=== PATIENT | male | born 1965 | race Caucasian/White ===

== ENCOUNTER 2016-07-30 09:07 | Day surgery (SDC) | payer BC ==
[~2016-07-30] VITALS: Ht 172.7 cm; Wt 97.9 kg
[~2016-07-30 09:07] MED LIST: LEVOFLOXACIN 500 mg IVPB 500 MG in D5W 100 ML IV ONE; LR 1,000 ML IV SCH
--- OUTSIDE RECORDS SUMMARY | 2016-07-30 09:13 | XMS REPORT | Summary of Care ---
Author Author Hugo Tan, FACS, ,Rodrigo Organization Unknown Address [address], [place] [id number] Phone Unavailable Care Team Providers Care Make Up Man Name Role Phone Cierra Adhikari M.D. 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 Encounter for postvasectomy sperm count (V25.8, Z30.8) Status: Active Obstructive sleep apnea (327.23, G47.33) Status: Active Worms in stool (128.9, B83.9) Status: Active Rectal bleeding (569.3, K62.5) Status: Active Rectal itching (698.0, L29.0) Status: Active External hemorrhoids (455.3, K64.4) Status: Active Inguinal hernia, left (550.90, K40.90) Status: Active Umbilical hernia (553.1, K42.9) Status: Active Cutaneous skin tags (701.9, L91.8) Status: Active Medications Name Dates Details Hydrocortisone Jaya-Pramoxine 2.5-1 & 1 % Rectal Kit USE AT BEDTIME NEEDED Quantity: 1 Maria Dolores Adhikari M.D.* Started Active Allergies and Adverse Reactions Name Dates Details No Known Drug Allergies Status: Active Past Medical History Name Dates Details Worms in stool (128.9, B83.9) Status: Active Procedures Procedure Dates Details History of Knee Surgery History of Surgery Vas Deferens Vasectomy ECG/ EKG Preop Pendin22-May-2015 CBC w/ Auto Diff 7150 Ordered:22-May-2015 BASIC METABOLIC PROFILE 1210 Ordered:22-May-2015 XRay CHEST-PA & LAT Ordered:22-May-2015 Immunization Name Dates Details Immunizations not documented Family History Unknown Family Member* Name Dates Details Family history of Diabetes Mellitus (V18.0) Comments: Family History Status: Active Social History Smoking Status* Unknown if ever smoked Vital Signs Date Test Result Details No Known Vitals to report Results Date Description Value Details Results not documented Plan of Care Planned Observations* Name Dates Details Planned Goals not documented Goal Planned Encounters* Appointment; Provider: Brandon Martinez On 06-Jul-2007 10:00 Instructions * Instructions not documented Encounters Appointment; Rodrigo Arias Encounter Diagnosis: Problem not documented On 22-May-2015 10:15 Appointment; Rodrigo Arias Encounter Diagnosis: Problem not documented On 09:30 Appointment; Fabian Gomez Encounter Diagnosis: Problem not documented On 10:45 Appointment; Savi Rand Encounter Diagnosis: Problem not documented On 14:00 Appointment; Maria Dolores Adhikari Encounter Diagnosis: Problem not documented On 11:00 Appointment; Jason Nelson Encounter Diagnosis: Problem not documented On 12:30 Appointment; Fabian Gomez Encounter Diagnosis: Problem not documented On 20-Aug-2013 13:45
--- OUTSIDE RECORDS SUMMARY | 2016-07-30 09:13 | XMS REPORT | Summary of Care ---
Author Author Hugo Tan, FACS, ,Rodrigo Organization Unknown Address [address], [place] [id number] Phone Unavailable Care Team Providers Care Explosive Operator Grenade Name Role Phone Cierra Adhikari M.D. Unavailable [...] Cutaneous skin tags (701.9, L91.8) Status: Active Incarcerated umbilical hernia (552.1, K42.0) Status: Active Medications Name Dates Details Hydrocortisone [...] not documented Goal Planned Encounters* Appointment; Provider: Rodrigo Arias On 23-Jun-2015 10:00 * Appointment; Provider: Brandon Martinez On 06-Jul-2007 10:00 [...]
--- OUTSIDE RECORDS SUMMARY | 2016-07-30 09:13 | XMS REPORT | Summary of Care ---
Author Author Hugo Tan FACS, ,Rodrigo Organization Unknown Address [address] [place], [place] [address] Phone Unavailable Care Team Providers Care Social Insurance Adviser Name Role Phone Hugo Tan, KIKE, ,, W Unavailable Unavailable Onofre Tan, Cierra Unavailable Unavailable Fabian Gomez PP Unavailable Unavailable [...] Incarcerated umbilical hernia (552.1, K42.0) Status: Active Postoperative examination (V67.00, Z09) Status: Active Medications Name Dates Details Hydrocortisone Jaya-Pramoxine 2.5-1 & 1 % Rectal Kit USE AT BEDTIME NEEDED Quantity: 1 Maria Dolores Adhikari M.D.* Started ActiveNorco 5-325 MG Oral Tablet 1 OR 2 EVERY 6 HOURS PRN PAIN * Quantity: 30 Refills: 0 Rodrigo Arias M.D., KIKE, , * Started 23-Jun-2015 Active Allergies and Adverse Reactions Name Dates Details No Known Drug Allergies Status: Active Past Medical History Name Dates Details Worms in stool (128.9, B83.9) Status: Active Procedures Procedure Dates Details History of Knee Surgery History of Surgery Vas Deferens Vasectomy Procedures not documented Immunization Name Dates Details Immunizations not documented Family History Unknown Family Member* Name Dates Details Family history of Diabetes Mellitus (V18.0) Comments: Family History Status: Active Social History Name Dates Details Smoking Status* Never smoker Vital Signs Date Test Result Details No Known Vitals to report Results Date Description Value Details 16-Jun-2015 12:46 CBC w/ Auto Diff 7150 Comments: DOS 06-23-15/HASC WBC 6.8 K/uL (Better) Range: 4.5-11.0 RBC 5.15 mil/uL (Better) Range: 4.20-5.40 HGB 16.2 g/dL (Better) Range: 14.0-18.0 HCT 47.5 % (Better) Range: 42.0-53.0 MCV 92.3 fL (Better) Range: 80.0-99.0 MCH 31.5 pg (Better) Range: 27.3-32.5 MCHC 34.1 % (Better) Range: 32.0-36.0 RDW 12.7 % (Better) Range: 11.6-14.8 PLATELETS 254 K/uL (Better) Range: 150-400 MPV 7.5 fL (Better) Range: 6.0-11.0 %NEUTRO 54.3 % (Better) Range: 37.0-80.0 %LYMPHS 31.0 % (Better) Range: 13.0-50.0 %MONO 7.7 % (Better) Range: 0.0-12.0 %EOS 1.2 % (Better) Range: 0.0-7.0 %BASO 1.2 % (Better) Range: 0.0-2.5 %SOHEILA 4.6 % (Better) Range: 0.0-5.0 NEUTRO 3.7 K/uL (Better) Range: 2.0-6.9 LYMPHS 2.1 K/uL (Better) Range: 0.6-3.4 MONOS 0.5 K/uL (Better) Range: 0.0-0.9 EOS 0.1 K/uL (Better) Range: 0.0-0.7 BASO 0.1 K/uL (Better) Range: 0.0-0.2 12:51 XRay CHEST-PA & LAT Comments: Exam Date: 06/16/2015 12: 42Dictation Date: 06/16/2015 12:51 X CHEST PA & LAT (Better) 13:02 BASIC METABOLIC PROFILE 1210 Comments: DOS 16/HASC SODIUM 137 mmol/L (Better) Range: 133-144 POTASSIUM 3.9 mmol/L (Better) Range: 3.5-5.1 CHLORIDE 101 mmol/L (Better) Range: 98-110 CARBON DIOXIDE 29.6 mmol/L (Better) Range: 23.0-33.0 ANION GAP 6 mmol/L (Better) Range: 6-16 BUN 18 mg/dL (Better) Range: 7-18 CREATININE, SERUM 1.08 mg/dL (Better) Range: 0.70-1.30 Comments: Please note new reference ranges effective 2014.----- EST GFR, >60 ml/min (Better) Range: >60 EST GFR, NON-AFR SOUTH AFR[place] >60 ml/min (Better) Range: >60 Comments: EST GFR is reported in ml/min per 1.73 m2 of body surface area. For -Chilean, please multiple result by 1.2.----- BUN:CREATININE RATIO 17 (Better) GLUCOSE 130 mg/dL (Above high threshold) Range: 70-100 CALCIUM 8.9 mg/dL (Better) Range: 8.5-10.1 13:16 ECG/ EKG Preop Electro CardioGram (Better) Plan of Care Planned Observations* Name Dates Details Planned Goals not documented Goal Planned Encounters* Appointment; Provider: Brandon Martinez On 06-Jul-2007 10:00 Instructions * Instructions not documented Encounters Appointment; Rodrigo Arias Encounter Diagnosis: Problem not documented On 03-Jul-2015 10:15 Appointment; Rodrigo Arias Encounter Diagnosis: Problem not documented On 23-Jun-2015 10:00 Appointment; Rodrigo Arias Encounter Diagnosis: Problem not documented On 22-May-2015 10:15 Appointment; Rodrigo Arais Encounter Diagnosis: Problem not documented On 09:30 [...]
--- OUTSIDE RECORDS SUMMARY | 2016-07-30 09:14 | XMS REPORT | Summary of Care ---
Author Author Hugo Tan, FACS, ,Rodrigo W Organization Unknown Address [address], [place] [phone] Phone Unavailable Care Team Providers Care Repairer General Name Role Phone Cierra Adhikari M.D. Unavailable [...] Active Encounter for postvasectomy sperm count (V25.8, Z30.9) Status: Active Obstructive sleep apnea (327.23, G47.33) Status: Active Worms in stool (128.9, B83.9) Status: Active Rectal bleeding (569.3, K62.5) Status: Active Rectal itching (698.0, L29.0) Status: Active External hemorrhoids (455.3, K64.8) Status: Active Inguinal hernia, left (550.90, K40.90) Status: Active Cutaneous skin tags (701.9, L91.8) Status: Active Umbilical hernia (553.1, K42.9) Status: Active Medications Name Dates Details Hydrocortisone Jaya-Pramoxine 2.5-1 & 1 % Rectal Kit USE AT BEDTIME NEEDED Quantity: 1 Onofre, Maria Dolores Tan* Started Active Allergies and Adverse Reactions Name [...] smoked Vital Signs Date Test Result Details 09:37 BP Systolic 120 mm[Hg] Status: BP Diastolic 88 mm[Hg] Status: Heart Rate 62 /min Status: Temperature 98.7 f Status: Weight 214 lb Status: Height 68.5 in Status: O2 SAT 90 % Status: Body Mass Index Calculated 32.07 kg/m2 Status: Body Surface Area Calculated 2.11 m2 Status: 11:20 BP Systolic 120 mm[Hg] Status: BP Diastolic 74 mm[Hg] Status: Respiration Rate 20 /min Status: Weight 211 lb Status: Body Mass Index Calculated 31.16 kg/m2 Status: Body Surface Area Calculated 2.11 m2 Status: Results Date Description Value Details Results not [...]
--- OUTSIDE RECORDS SUMMARY | 2016-07-30 09:14 | XMS REPORT | Summary of Care ---
Author Author Moody Perdomo M.D. Unknown Address Unknown Phone Unavailable Care Team Providers Care Lens Polisher Hand Name Role Phone Hugo Tan, KIKE, ,, W Unavailable Unavailable Onofre Tan, Cierra Unavailable Unavailable Ashtyn Perdomo M.D. Unavailable Unavailable Fabian Gomez Unavailable Unavailable Unavailable Unavailable Functional Status Name Dates Details Functional status health issues are not documented Status: Name Dates Details Cognitive status health issues [...] Active Postoperative examination (V67.00, Z09) Status: Active Viral syndrome (079.99, B34.9) Status: Active Medications Name Dates Details Hydrocortisone Jaya-Pramoxine 2.5-1 & 1 % KIT USE AT BEDTIME NEEDED Quantity: 1 Onofre Tan, August * Start Active Corwith 5-325 MG Oral Tablet 1 OR 2 EVERY 6 HOURS PRN PAIN * Quantity: 30 Refills: 0 Hugo Tan, KIKE, , , Rodrigo W * Start 23-Jun-2015 Active Oseltamivir Phosphate 75 MG Oral Capsule TAKE 1 CAPSULE Every twelve hours * Quantity: 1 Refills: 0 Leanne Tan, Moody Chamorro * Start 22-Jun-2016 Active 10 Capsule Bottle Allergies and Adverse Reactions Name Dates Details No Known Drug Allergies (Allergy) Status: Active Past Medical History Name Dates Details Worms in stool (128.9, B83.9) Status: Active Procedures Procedure Dates Details History of Knee Surgery History of Surgery Vas Deferens Vasectomy History of Incarcerated Umbilical Hernia Repair For Person Over Age 5 History of Inguinal Hernia Repair For Person Over Age 5 History of Excision Of Lesion Trunk Benign Up To .5cm Procedures not documented Immunization Name Dates Details Immunizations not documented Family History Name Dates Details Family history of Diabetes Mellitus (V18.0) Comments: Family History Status: Active Social History Name Dates Details - Status: Name Dates Details Never smoker Vital Signs Date Test Result Details 22-Jun-2016 09:47 BP Systolic 124 mm[Hg] Status: Comments: Location: ; Position: BP Diastolic 80 mm[Hg] Status: Comments: Location: ; Position: Temperature 99.3 f Status: Comments: Method: Weight 224.4 lb Status: Body Mass Index Calculated 33.62 kg/m2 Status: Body Surface Area Calculated 2.16 m2 Status: Results Date Description Value Details Results not documented Plan of Care Name Dates Details Planned Observations Planned Goals not documented Interventions Provided Medication Changes* Oseltamivir Phosphate 75 MG Oral Capsule - Start Instructions Name Dates Details Instructions not documented Encounters Appointment; Rodrigo Arias M.D.|Collin.C.[facility].|Britney,SHANT,KIKE, Encounter Diagnosis: Problem not documented On 03-Jul-2015 10:15 Appointment; Rodrigo Arias M.D.|MichelA.C.S.|Britney,SHANT,KIKE, Encounter Diagnosis: Problem not documented On 23-Jun-2015 10:00 Appointment; Rodrigo Arias M.D.|Osorio.Gladys.C.S.|Britney,SHANT,KIKE, Encounter Diagnosis: Problem not documented On 22-May-2015 10:15 Appointment; Rodrigo Arias M.D.|Osorio.A.C.S.|Britney,SHANT,KIKE, Encounter Diagnosis: Problem not documented On 09:30 Appointment; Fabian Gomez M.D. Encounter Diagnosis: Problem not documented On 10:45"
--- OUTSIDE RECORDS SUMMARY | 2016-07-30 09:14 | XMS REPORT | Summary of Care ---
Author Author Maria Dolores Adhikari M.D. Organization Unknown Address [address] [place], [place] [phone] Phone Unavailable Care Team Providers Care Cuff Setter Name Role Phone Fabian Gomez Unavailable Unavailable Unavailable Unavailable Functional Status Functional Status Health Issues* Name Dates Details No known functional status health issues Status: Cognitive Status Health Issues* Name Dates Details No known cognitive status health issues Status: Problems Name Dates Details Headache (784.0, [...] Active External hemorrhoids (455.3, K64.8) Status: Active Medications Name Dates Details No Reported Medications Active Allergies and Adverse Reactions Name Dates Details No Known Drug Allergies Status: Active Past Medical History Name Dates Details Worms in stool (128.9, B83.9) Status: Active Procedures Procedure Dates Details Knee Surgery Surgery Of Male Genitalia Vasectomy Procedures not documented Immunization Name Dates Details Immunizations not documented Family History Unknown Family Member* Name Dates Details Diabetes Mellitus (V18.0) Comments: Family History Status: Active Social History Smoking Status* Unknown if ever smoked Vital Signs Date Test Result Details 12:35 BP Systolic 135 mm[Hg] Status: BP Diastolic 89 mm[Hg] Status: Heart Rate 72 /min Status: Weight 210.4 lb Status: Height 69 in Status: Body Mass Index Calculated 31.07 kg/m2 Status: Body Surface Area Calculated 2.11 Status: Results Date Description Value Details Results not documented Plan of Care Instructions* Instructions not documented Planned Observations* Name Dates Details Planned Goals not documented Goal Planned Encounters* Appointment; Provider: Brandon Martinez On 06-Jul-2007 10:00 Instructions * No Known Instructions Encounters Appointment; Maria Dolores Adhikari Encounter Diagnosis: Problem not documented On 11:00 Appointment; Jason Nelson Encounter Diagnosis: Problem not documented On 12:30 Appointment; Fabian Gomez Encounter Diagnosis: Problem not documented On 20-Aug-2013 13:45 Appointment; Fabian Gomez Encounter Diagnosis: Problem not documented On 24-Jan-2012 15:15
--- OUTSIDE RECORDS SUMMARY | 2016-07-30 09:14 | XMS REPORT | Summary of Care ---
Author Author Fabian Gomez M.D. Organization Unknown Address [address], [place] [phone] Phone Unavailable Care Team Providers Care Grinder Mill Operator Name Role Phone Cierra Adhikari M.D. Unavailable [...] Active External hemorrhoids (455.3, K64.8) Status: Active Umbilical hernia (553.1, K42.9) Status: [...] smoked Vital Signs Date Test Result Details 11:20 BP Systolic 120 mm[Hg] Status: BP Diastolic 74 mm[Hg] Status: Respiration Rate 20 /min Status: Weight 211 lb Status: Body Mass Index Calculated 31.16 kg/m2 Status: Body Surface Area Calculated 2.11 m2 Status: Results Date Description Value Details Results not documented Plan of Care Planned Observations* Name Dates Details Planned Goals not documented Goal Planned Encounters* Appointment; Provider: Rodrigo Arias On 09:30 * Appointment; Provider: Brandon Martinez On 06-Jul-2007 10:00 Instructions * Instructions not documented Encounters Appointment; Fabian Gomez Encounter Diagnosis: Problem not documented On 10:45 Appointment; Savi Rand Encounter Diagnosis: Problem not documented On 14:00 Appointment; Maria Dolores Adhikari Encounter Diagnosis: Problem not documented On 11:00 Appointment; Jason Nelson Encounter Diagnosis: Problem not documented On 12:30 Appointment; Fabian Gomez Encounter Diagnosis: Problem not documented On 20-Aug-2013 13:45
--- OUTSIDE RECORDS SUMMARY | 2016-07-30 09:14 | XMS REPORT | Summary of Care ---
Author Author Fabian Gomez M.D. Organization Unknown Address [address], [place] [phone] Phone Unavailable Care Team Providers Care Seal Delivery Vehicle Officer Name Role Phone Ashtyn Gomez M.D. Unavailable Unavailable Jason Snider Unavailable Unavailable Fabian Gomez Unavailable Unavailable Unavailable Unavailable Functional Status Name Dates Details Functional status health issues are not documented Status: Name Dates Details Cognitive status health issues are not documented Status: Problems Name Dates Details Generalized abdominal pain (789.07, R10.84) Status: Active Medications Name Dates Details No Reported Medications Jason Snider Active Allergies and Adverse Reactions Name Dates Details No Known Drug Allergies (Allergy) Status: Active Procedures Procedure Dates Details History of Knee Surgery History of Surgery Vas Deferens Vasectomy History of Incarcerated Umbilical Hernia Repair For Person Over Age 5 History of Inguinal Hernia Repair For Person Over Age 5 History of Excision Of Lesion Trunk Benign Up To .5cm CT ABDOMEN WITHOUT AND WITH IV AND ORAL CONTRAST Ordered: 25-Jul-2016 Immunization Name Dates Details Immunizations not documented Family History Name Dates Details Family history of Diabetes Mellitus (V18.0) Comments: Family History Status: Active Social History Name Dates Details - Status: Name Dates Details Never smoker Vital Signs Date Test Result Details 25-Jul-2016 11:36 BP Systolic 144 mm[Hg] Status: Comments: Location: ; Position: BP Diastolic 96 mm[Hg] Status: Comments: Location: ; Position: Heart Rate 2 /min Status: Comments: Location: ; Weight 224 lb Status: Body Mass Index Calculated 33.56 kg/m2 Status: Body Surface Area Calculated 2.16 m2 Status: Results Date Description Value Details 25-Jul-2016 12:29 Urinalysis, Reflex to Microscopic or Culture PRN 8005 pH 5.5 Range: 5.0-7.5 SP GRAVITY 1.010 Range: 1.010-1.030 APPEARANCE CLEAR Range: Clear COLOR YELLOW Range: Straw-Yellow PROTEIN NEGATIVE mg/dL Range: Negative-Trace GLUCOSE 100 mg/dL (Abnormal) Range: Negative KETONE NEGATIVE mg/dL Range: Negative BILIRUB NEGATIVE Range: Negative BLOOD NEGATIVE Range: Negative UROBIL 0.2 EU/dL Range: 0.2-1.0 NITRITE NEGATIVE Range: Negative LEUK NEGATIVE Range: Negative 12:36 CBC w/ Auto Diff 7150 WBC 7.0 K/uL Range: 4.5-11.0 RBC 5.02 mil/uL Range: 4.20-5.40 HGB 15.7 g/dL Range: 14.0-18.0 HCT 44.6 % Range: 42.0-53.0 MCV 88.8 fL Range: 80.0-99.0 MCH 31.2 pg Range: 27.3-32.5 MCHC 35.1 % Range: 32.0-36.0 RDW 13.2 % Range: 11.6-14.8 PLATELETS 258 K/uL Range: 150-400 MPV 6.6 fL Range: 6.0-11.0 %NEUTRO 62.5 % Range: 37.0-80.0 %LYMPHS 26.2 % Range: 13.0-50.0 %MONO 5.5 % Range: 0.0-12.0 %EOS 1.1 % Range: 0.0-7.0 %BASO 1.0 % Range: 0.0-2.5 %SOHEILA 3.6 % Range: 0.0-5.0 NEUTRO 4.3 K/uL Range: 2.0-6.9 LYMPHS 1.8 K/uL Range: 0.6-3.4 MONOS 0.4 K/uL Range: 0.0-0.9 EOS 0.1 K/uL Range: 0.0-0.7 BASO 0.1 K/uL Range: 0.0-0.2 13:08 Comprehensive Metabolic Panel 1212 SODIUM 139 mmol/L Range: 133-144 POTASSIUM 3.9 mmol/L Range: 3.5-5.1 CHLORIDE 103 mmol/L Range: 98-110 CARBON DIOXIDE 29.4 mmol/L Range: 23.0-33.0 ANION GAP 7 mmol/L Range: 6-16 BUN 14 mg/dL Range: 7-18 CREATININE, SERUM 1.14 mg/dL Range: 0.70-1.30 BUN:CREATININE RATIO 12 EST GFR, >60 ml/min Range: >60 EST GFR, NON-AFR CITIZEN OF [place] >60 ml/min Range: >60 Comments: EST GFR is reported in ml/min per 1.73 m2 of body surface area. ----- GLUCOSE 142 mg/dL (Above high threshold) Range: 70-100 ALK PHOSPHATASE 60 U/L Range: 46-116 TOTAL BILIRUBIN 0.60 mg/dL Range: 0.20-1.00 AST 15 U/L Range: 8-35 ALT 38 U/L Range: 16-63 ALBUMIN 3.8 g/dL Range: 3.4-5.0 TOTAL PROTEIN 8.3 g/dL (Above high threshold) Range: 6.4-8.2 A/G RATIO 0.8 units (Below low threshold) Range: 1.0-1.8 CALCIUM 9.2 mg/dL Range: 8.5-10.1 13:08 AMYLASE 1250 AMYLASE 53 U/L Range: 25-115 13:08 Lipase 1275 LIPASE 681 U/L (Above high threshold) Range: 73-393 Plan of Care Name Dates Details Planned Observations Planned Goals not documented Planned Encounters Appointment; Provider: Schedule Radiology On 25-Jul-2016 14:00 Interventions Provided Labs/Procedures/Imaging* AMYLASE 1250; Done: Jul 25 2016 12:23PM * CBC w/ Auto Diff 7150; Done: Jul 25 2016 12:23PM * Comprehensive Metabolic Panel 1212; Done: Jul 25 2016 12:23PM * Lipase 1275; Done: Jul 25 2016 12:23PM * Urinalysis, Reflex to Microscopic or Culture PRN 8005; Done: Jul 25 2016 12: 23PM Instructions Name Dates Details Instructions not documented Encounters Appointment; Moody Perdomo M.D. Encounter Diagnosis: Problem not documented On 22-Jun-2016 09:40 Appointment; Rodrigo Arias M.D.|Collin.C.S.|Britney,SHANT,KIKE, Encounter Diagnosis: Problem not documented On 03-Jul-2015 10:15 Appointment; Rodrigo Arias M.D.|Collin.C.S.|SHANT Tan,KIKE, Encounter Diagnosis: Problem not documented On 23-Jun-2015 10:00 Appointment; Rodrigo Arias M.D.|Osorio.A.C.S.|SHANT Tan,KIKE, Encounter Diagnosis: Problem not documented On 22-May-2015 10:15 Appointment; Rodrigo Arias M.D.|Pepe,SHANT,KIKE, Encounter Diagnosis: Problem not documented On 09:30 Appointment; Fabian Gomez M.D. Encounter Diagnosis: Problem not documented On 10:45"
--- OUTSIDE RECORDS SUMMARY | 2016-07-30 09:14 | XMS REPORT | Summary of Care ---
Author Author Fabian Gomez M.D. Organization Unknown Address [address], [place] [phone] Phone Unavailable Care Team Providers Care Director Of Radiology Name Role Phone Ashtyn Gomez M.D. Unavailable Unavailable Jason Snider Unavailable Unavailable Fabian Gomez Unavailable Unavailable Unavailable Unavailable Functional Status Name Dates Details Functional status health issues are not documented Status: Name Dates Details Cognitive status health issues are not documented Status: Problems Name Dates Details Generalized abdominal pain (789.07, R10.84) Status: Active Left ureteral stone (592.1, N20.1) Status: Active Recurrent nephrolithiasis (592.0, N20.0) Status: Active Hyperglycemia (790.29, R73.9) Status: Active Medications Name Dates Details No [...] >60 ml/min Range: >60 EST GFR, NON-AFR EGYPTIAN >60 ml/min Range: >60 Comments: EST GFR [...] 681 U/L (Above high threshold) Range: 73-393 14:26 CT ABDOMEN WITHOUT AND WITH IV AND ORAL CONTRAST Comments: Exam Date: 07/25/2016 12:48Dictation Date: 07/25/2016 14:26 XC AB 45 MIN PREP Plan of Care Name Dates Details Planned [...] documented On 22-Jun-2016 09:40 Appointment; Rodrigo Arias M.D.|Allie|Britney,KIKE|Britney,KIKE, Encounter Diagnosis: Problem not documented On 03-Jul-2015 10:15 Appointment; Rodrigo Arias M.D.|Collin.C.S.|Britney,SHANT,KIKE, Encounter Diagnosis: Problem not documented On 23-Jun-2015 10:00 Appointment; Rodrigo Arias M.D.|Collin.C.S.|Britney,SHANT,KIKE, Encounter Diagnosis: Problem not documented On 22-May-2015 10:15 Appointment; Rodrigo Arias M.D.|Osorio.Gladys.C.S.|Britney,SHANT,KIKE, Encounter Diagnosis: Problem not documented On 09:30 Appointment; Fabian Gomez M.D. Encounter Diagnosis: Problem not documented On 10:45"
--- OUTSIDE RECORDS SUMMARY | 2016-07-30 09:14 | XMS REPORT | Summary of Care ---
Author Author Noel Schultz M.D. Unknown Address [address] [place] [address] [place] [address] Phone Unavailable Care Team Providers Care [employer] Repairer Name Role Phone Jason Snider Unavailable Unavailable Noel Schultz M.D. Unavailable Unavailable Fabian Gomez Unavailable Unavailable Unavailable Unavailable Functional Status Name Dates Details Functional status health issues are not documented Status: Name Dates Details Cognitive status health issues are not documented Status: Problems Name Dates Details Generalized abdominal pain (789.07, R10.84) Status: Active Recurrent nephrolithiasis (592.0, N20.0) Status: Active Hyperglycemia (790.29, R73.9) Status: Active Black stools (792.1, K92.1) Status: Active Left ureteral stone (592.1, N20.1) Status: Active Kidney stone on left side (592.0, N20.0) Status: Active Medications Name Dates Details No Reported Medications Jason Snider Active Allergies and Adverse Reactions Name Dates Details No Known Drug Allergies (Allergy) Status: Active Past Medical History Name Dates Details Patient denies significant medical history Status: Resolved Procedures Procedure Dates Details History of Knee Surgery History of Surgery Vas Deferens Vasectomy History of Incarcerated Umbilical Hernia Repair For Person Over Age 5 History of Inguinal Hernia Repair For Person Over Age 5 History of Excision Of Lesion Trunk Benign Up To .5cm Upper Endoscopy ( EGD) Pendin26-Jul-2016 Immunization Name Dates Details Immunizations not documented Family History Name Dates Details Family history of Diabetes Mellitus (V18.0) Comments: Family History Status: Active Social History Name Dates Details - Status: Name Dates Details Never smoker Vital Signs Date Test Result Details 29-Jul-2016 08:22 BP Systolic 147 mm[Hg] Status: Comments: Location: ; Position: BP Diastolic 102 mm[Hg] Status: Comments: Location: ; Position: Heart Rate 74 /min Status: Comments: Location: ; Weight 220 lb Status: Body Mass Index Calculated 32.96 kg/m2 Status: Body Surface Area Calculated 2.14 m2 Status: 25-Jul-2016 11:36 BP Systolic 144 mm[Hg] Status: Comments: Location: ; Position: Sitting BP Diastolic 96 mm[Hg] Status: Comments: Location: ; Position: Sitting Heart Rate 2 /min Status: Comments: Location: [...] >60 ml/min Range: >60 EST GFR, NON-AFR SAMMARINESE >60 ml/min Range: >60 Comments: EST GFR [...] Goals not documented Planned Encounters Appointment; Provider: Noel Schultz M.D. On 30-Jul-2016 10:15 Instructions Name Dates Details Instructions not documented Encounters Appointment; Fabian Gomez M.D. Encounter Diagnosis: Problem not documented On 25-Jul-2016 11:00 Appointment; Moody Perdomo M.D. Encounter Diagnosis: Problem not documented On 22-Jun-2016 09:40 Appointment; Rodrigo Arias M.D.|[facility]Britney,KIKE|Britney,KIKE, Encounter Diagnosis: Problem not documented On 03-Jul-2015 10:15 Appointment; Rodrigo Arias M.D.|[facility]Britney,KIKE|Britney,KIKE, Encounter Diagnosis: Problem not documented On 23-Jun-2015 10:00 Appointment; Rodrigo Arias M.D.|[facility]Britney,SHANT,KIKE, Encounter Diagnosis: Problem not documented On 22-May-2015 10:15 Appointment; Rodrigo Arias M.D.|[facility]Britney,SHANT,KIKE, Encounter Diagnosis: Problem not documented On 09:30 Appointment; Fabian Gomez M.D. Encounter Diagnosis: Problem not documented On 10:45"
[2016-07-30 09:25] VITALS: Ht 172.7 cm; Wt 97.9 kg
[2016-07-30 09:27] VITALS: BP 160/92; PULSE 63; RESP 16; TEMP 98.3; O2SAT 95
[2016-07-30 09:57] LABS: BASOPHILS # (AUTO) 0.1 T/MM3 (0-0.2); EOSINOPHILS # (AUTO) 0.1 T/MM3 (0-0.5); EOSINOPHILS % (AUTO) 0.9 % (0-4); IMMATURE GRANULOCYTE # (AUTO) 0.02 T/MM3 (0.00-0.03); IMMATURE GRANULOCYTE % (AUTO) 0.3 % (0.0-0.5); LYMPHOCYTES # (AUTO) 1.7 T/MM3 (1-4.8); LYMPHOCYTES % (AUTO) 24.4 % (23-45); MEAN CORPUSCULAR HGB 30.2 UUG (26-34); MEAN CORPUSCULAR HGB CONC(MCHC 34.1 GM/DL (31-37); MEAN CORPUSCULAR VOLUME 88.5 UM3 (80-100); MEAN PLATELET VOLUME 10.1 UM3 (9.4-12.4); MONOCYTES # (AUTO) 0.4 T/MM3 (0-0.8); MONOCYTES % (AUTO) 5.8 % (0-9.0); NEUTROPHILS #(AUTO)-ABSOLUTE 4.8 T/MM3 (1.8-7.7); NEUTROPHILS % (AUTO) 67.6 % (33-66); RED BLOOD COUNT 4.97 M/MM3 (4.50-5.90)
[2016-07-30 10:08] LABS: ANION GAP 14 MEQ/L (5-15); BUN/CREATININE RATIO 16 RATIO (6-26); CHLORIDE 105 MEQ/L (98-107); CO2 - CARBON DIOXIDE 27 MEQ/L (22-30); CREATININE 1.1 MG/DL (0.8-1.5); GLOMERULAR FILTRATION RATE 71; GLUCOSE 172 MG/DL (75-110); POTASSIUM 3.9 MEQ/L (3.6-5); SODIUM 146 MEQ/L (134-144)
[2016-07-30] MEDS ORDERED: PROPOFOL 500mg 50 ML IV ONE ×2 (10:17→14:48)
[2016-07-30] MEDS ORDERED: MIDAZOLAM 2mg/2ml INJECTION ONE ×2 (10:22→12:29)
[2016-07-30] MEDS ORDERED: GENTAMICIN 80 MG/2 ML INJECTION ONE ×2 (10:43→12:16)
[2016-07-30] MEDS ORDERED: IOHEXOL 300 MG/ML 50ml INJECTION ONE ×2 (10:43→12:16)
--- NOTE | 2016-07-30 10:50 | ANESPREOP ---
Anesthesia Record Date and Time DATE: 07/30/16 TIME: 10:47 Proposed Surgical Procedure CYSTO Allergies: Coded Allergies: No Known Drug Allergies (Verified Allergy, Unknown, 07/30/16) Ht/Wt/BMI Height: 5 ' 8.00 " Weight: 97.900 kg BMI: 32.8 kg/m2 Vital Signs Date Time Temp Pulse Resp B/P Pulse Ox O2 Delivery O2 Flow Rate FiO2 07/30/16 09:27 98.3 63 16 160/92 95 Room Air Medications Inpatient Medications Current Medications Medications (Trade) Dose Ordered Sig/Cherise Start Time Stop Time Status Last Admin Dose Admin Lactated Ringer's (Lactated Ringers) 1,000 ml @ 50 mls/hr Q20H 07/30/16 07:00 07/30/16 09:56 50 MLS/HR No Active Prescriptions or Reported Meds Currently on Beta Riri: No Medical/Surgical History Anesthesia PMH: Reports: Sleep Apnea (cpap), Denies: *Diabetes, Anesthesia Reactions (NO AIRWAY ISSUES), Arthritis, Cancer, Clotting Problems, Glaucoma, Malignant Hyperthermia, Renal Disease, Thyroid Disease Smoking Status: Never smoker Use Chewing Tobacco?: No Second Hand Exposure: No Substance Use Type: does not use Alcohol Intake: rarely Past Surgical History Orthopedic Surgeries: Yes - R KNEE SCOPE Abdominal Surgeries: Yes - HERNIA REPAIR Genitourinary Surgeries: Cardiac Surgeries: Endocrine Surgeries: Reproductive Surgeries: Yes - VASECTOMY PER H&P Neurological Surgeries: Ear Surgeries: Nose Surgeries: Throat Surgeries: Other Surgeries: Yes - COLONOSCOPY,EXCISION OF LESION PER H&P Anesthesia Adverse Reactions: FOUND none Family Hx of Anesthesia Advers: none Hx of Motion Sickness: No Pertinent Findings Laboratory Tests 07/30/16 09:32 Physical Exam Respiratory: Lungs clear Cardiovascular: FOUND Regular rate, rhythm Airway Assessment Mallampati Score: II TMD: 3 Fingerbreadths Neck Extension: Good Overall Assessment: May Be Diff Mask Vent., May Be Diff Intubation ASA: 2 Plan Anesthesia Plan: TIVA Discussion Discussed risks/options/alternatives of anesthesia and questions answered. Patient consents. Nursing pain assessment noted. Attestation Statement Prior to the delivery of any anesthetic medication, I examined the patient, developed the plan, obtained the patient's consent and discussed the risk and benefits of the procedure with the patient/guardian. ALE LION CRNA July 30, 2016 10:50
[2016-07-30] MEDS ORDERED: FENTANYL 100mcg/2ml INJECTION ONE ×2 (11:58→12:29)
[2016-07-30] MEDS ORDERED: LR 1,000 ML IV SCH (13:18)
[2016-07-30 13:27] VITALS: BP 105/65; PULSE 67; RESP 14; TEMP 97.3; O2SAT 94
[2016-07-30] MEDS ORDERED: ONDANSETRON 4mg/2ml INJECTION IV PRN (13:30)
[2016-07-30] MEDS ORDERED: MORPHINE SULFATE 4 MG SYRINGE IV PRN (13:30)
[2016-07-30] MEDS ORDERED: KETOROLAC 30mg/ml INJECTION IV PRN (13:30)
[2016-07-30] MEDS ORDERED: PHENAZOPYRIDINE 95 MG TABLET PO PRN (13:30)
[2016-07-30] MEDS ORDERED: HYDROCODONE/APAP 5 mg/325 mg TABLET PO PRN (13:30)
--- NOTE | 2016-07-30 13:30 | DI ---
Indication: ITS.REASON: LEFT RETROGRADE/STENT INSERTION PROCEDURE: RF RETROGRADE PYELOGRAM LEFT: Encounter: Initial Comparison: None Findings: Seven fluoroscopic spot images are submitted for interpretation. Images show a calcification in the left pelvis that could be a ureteral stone. Guidewire is then advanced through the left ureter with angioplasty balloon deployed at the left UVJ. Retrograde injection of contrast into the left renal collecting system shows normal appearance of the calyces. This is followed by placement of a double-J stent which appears appropriately positioned. Impression: Fluoroscopy as above. Fluoroscopy time is 179.4 seconds. Fluoroscopy dose is 6020 mRad. .
[2016-07-30] MEDS ORDERED: PHEN95TA25 PO (13:33)
[2016-07-30] MEDS ORDERED: HYDR-4246 PO (13:33)
[2016-07-30] MEDS ORDERED: NITR100C4 PO (13:33)
--- NOTE | 2016-07-30 13:44 | ANESPO ---
Post-Op Note Date 07/30/16 Time: 13:40 Status Pt Participated in Evaluation: Pt participated in person Vital Signs Date Time Temp Pulse Resp B/P Pulse Ox O2 Delivery O2 Flow Rate FiO2 07/30/16 13:27 97.3 67 14 105/65 94 Room Air Respiratory Function: Airway patent Cardiovascular Function: Regular pulse Mental Status: Alert/oriented Pain Level Intensity: 0 Unable to Assess Pain Due To: Medicated/Sleeping Hydration: Taking po fluids Complications during Recovery None apparent Follow-Up Instructions Instructions Per Surgeon LAE LION CRNA July 30, 2016 13:44
[2016-07-30 13:45] VITALS: BP 109/73; PULSE 65; RESP 16; O2SAT 95
[2016-07-30 14:00] VITALS: BP 109/80; PULSE 61; RESP 18; O2SAT 96
--- NOTE | 2016-07-30 14:10 | NUR ---
Prescriptions Called to [facility] pharmacy at this time. 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
[2016-07-30 14:15] VITALS: BP 119/77; PULSE 62; RESP 18; O2SAT 97
[2016-07-30] MEDS ORDERED: NITROFURANTOIN (Macrobid) 100mg CAP PO SCH (17:30)
--- NOTE | 2016-07-31 07:28 | OPNOTEF ---
DATE 07/30/2016 PREOPERATIVE DIAGNOSIS Left ureteral stone. POSTOPERATIVE DIAGNOSIS Left ureteral stone and ureteral stenosis. OPERATION PERFORMED Cystoscopy with ureteral dilation and ureteroscopic holmium laser lithotripsy and stone basket with stent insertion. Also, left retrograde pyelogram under fluoroscopy. ANESTHESIA General TIVA. INDICATION Mr. Smith is a 50-year-old man with symptomatic left distal ureteral stone for the past 3-[address] scan confirmed the stone in the left distal ureter and it has not shown any progression. The patient was brought in to have stone treated by ureteroscopy and stent insertion. DESCRIPTION OF PROCEDURE The patient was taken to the cystoscopy suite and, under intravenous anesthesia, the patient was placed in dorsal lithotomy position and prepped and draped in the usual fashion for a cystoscopy. A 21 Afghan cystoscope was inserted into the bladder under direct vision. Bladder shows moderate trabeculation but no bladder tumor, foreign body or stone. Ureteral orifices are normal bilaterally in location and contour, but left orifice is rather small in caliber. Bladder outlet is mildly obstructive from small prostate gland. Urethra is free of stricture. Fluoroscopically, the stone was visualized in the left pelvic ureter, unchanged from previous radiographic studies. Left ureteral orifice was cannulated with a 0.035 gauge guidewire under fluoroscopy and observed the guidewire going by the stone. The guidewire was inserted into the renal pelvis. A 7 Afghan ureteroscope was fed over the guidewire. Attempts were made to insert into the ureter but were unable to do so as ureter is extremely narrow. Ureteroscope was therefore removed and a 15 Afghan ureteral balloon dilator was placed and the distal ureter dilated to 15 Afghan under fluoroscopic guidance at 8 atmospheric pressure up to the stone. Cystoscope was then removed along with the dilator. Ureteroscope was then reinserted and able to cannulate the ureteral orifice next to the guidewire and advance towards the kidney until the stone was seen. The stone was then fragmented with the holmium laser at 10 stevens into two main pieces and also several other smaller pieces. The fragmented stone was then retrieved with a 2.2 Afghan Olympus basket. Both stones were dropped into the bladder. Ureteroscope was reinserted and advanced to the distal half of ureter and did not find any further stone fragments. Therefore the ureteroscope was removed and cystoscope was reinserted into the bladder next to the guidewire. The stone fragments in the bladder were identified and grasped with a grasping forceps and removed and will be sent for analysis. Cystoscope was then replaced into the bladder over the guidewire and 5 Afghan open-ended ureteral catheter was placed over the guidewire into the renal pelvis under fluoroscopic guidance. Contrast was injected showing normal renal anatomy. No further stone or filling defect was found. Guidewire was replaced into the renal pelvis and the ureteral catheter retrieved and over this guidewire a 6 Afghan x 24 cm double pigtail stent was placed into the left renal system under fluoroscopic guidance. Stent position was confirmed fluoroscopically and cystoscopically. The blader was emptied out and cystoscope removed. String attached to the distal end of the ureteral stent was trimmed at the meatus. The patient was then taken to the recovery area in stable condition. EULALIA
== END 2016-07-30 14:30 | disposition home or self-care (01) ==
LOC: SCU 09:07
PROVIDERS: ATTEND Specialist
DX: N20.2 Calculus of kidney with calculus of ureter (principal); N13.5 Crossing vessel and stricture of ureter without hydronephrosis; N32.89 Other specified disorders of bladder; N32.0 Bladder-neck obstruction; R73.9 Hyperglycemia, unspecified
CPT/HCPCS: 36415; 52356; 74420; 80048; 82365; 85025; C2617; J1580; J1956; J2250; J2704; J3010; J7060; J7120; Q9967